=== PATIENT | male | born 1940 | race Caucasian/White ===

== ENCOUNTER 2023-07-27 10:21 | Emergency (ER) | payer MEDICARE ==
[~2023-07-27] VITALS: Ht 175.3 cm; Wt 59.0 kg
[2023-07-27 10:36] VITALS: BP_SYST 133; PULSE 56; RESP 16; TEMP 97.8; O2SAT 100
[2023-07-27 10:57] LABS: BASOPHILS % (AUTO) 0.4 % (0.0-2.0); EOSINOPHILS % (AUTO) 0.5 % (0.0-4.0); HEMATOCRIT 41.6 % (36-54); HEMOGLOBIN 13.9 g/dL (14.0-18.0); LYMPHOCYTES # (AUTO) 1.1 K/uL (1.0-5.5); LYMPHOCYTES % (AUTO) 13.4 % (20.5-51.5); MEAN CORPUSCULAR HEMOGLOBIN 30 pg (27-31); MEAN CORPUSCULAR HGB CONC 33 % (32-36); MEAN CORPUSCULAR VOLUME 91 fL (79.0-98.0); MONOCYTES # (AUTO) 0.5 K/uL (0.0-1.0); MONOCYTES % (AUTO) 5.7 % (1.7-9.3); NEUTROPHILS # (AUTO) 6.7 K/uL (1.8-7.7); PLATELET COUNT (AUTO) 155 K/uL (130-430); RED BLOOD CELL COUNT(AUTO) 4.59 MIL/uL (4.2-6.2); RED CELL DISTRIBUTION WIDTH 13.8 % (9.0-15.0); WHITE BLOOD COUNT (AUTO) 8.4 K/uL (4.8-10.8)
[2023-07-27 11:23] LABS: INR 1.1 (0.80-1.20); PROTHROMBIN TIME 11.5 SECS (9.5-12.5)
[2023-07-27 11:35] LABS: ALANINE AMINOTRANSFERASE 100 U/L (12-78); ALBUMIN 3.3 g/dL (3.4-4.8); ANION GAP 7 (5-15); ASPARTATE AMINOTRANSFERASE 46 U/L (10-37); BILIRUBIN,DIRECT 0.2 mg/dL (0.0-0.3); CARBON DIOXIDE 28 mmol/L (23-29); CHLORIDE 104 mmol/L (98-107); CREATINE KINASE, TOTAL 106 U/L (39-308); CREATININE 1.24 mg/dL (0.55-1.30); GLUCOSE 182 mg/dL (74-106); POTASSIUM 4.5 mmol/L (3.5-5.1); SODIUM SERUM 139 mmol/L (136-145); TOTAL BILIRUBIN 0.6 mg/dL (0.0-1.0); TOTAL PROTEIN, SERUM 6.6 g/dL (6.4-8.3); UREA NITROGEN, BLOOD 22 mg/dL (8-21)
[2023-07-27] MEDS ORDERED: iohexoL 350 mgI/mL, 100 ML INFUS..BTL IV ONE (12:00)
[2023-07-27] MEDS ORDERED: LOSA-412 PO (12:26)
[2023-07-27] MEDS: ASPIRIN 81 MG TABLET(ECOTRIN) PO ONE (14:03)
[2023-07-27] MEDS: ACETAMINOPHEN 500 MG TABLET PO ONE (16:46)
[2023-07-27] MEDS ORDERED: SENN-153 (17:50)
[2023-07-27] MEDS ORDERED: ASCO-339 (17:50)
[2023-07-27] MEDS ORDERED: ZINC30TA3 (17:50)
[2023-07-27] MEDS ORDERED: NACL 0.9% 1,000 ML IV ONE (19:00)
[2023-07-27 21:05] VITALS: RESP 18; TEMP 97.2
[2023-07-27 21:37] VITALS: BP_SYST 115; PULSE 46; O2SAT 99
[2023-07-27] MEDS ORDERED: ACETAMINOPHEN 500 MG TABLET PO ONE (23:00)
== END 2023-07-27 21:44 | disposition short-term general hospital (02) ==
LOC: SED 10:21
DX: G45.9 Transient cerebral ischemic attack, unspecified (principal); I10 Essential (primary) hypertension; Z60.2 Problems related to living alone; Z79.899 Other long term (current) drug therapy
CPT/HCPCS: 99285; 70450; 71045; 80076; 80048; 82550; 85025; 85610; 85730; 84484; 36415; 93005; 70496; 70498; 82948; Q9967